=== PATIENT | male | born 1970 | race Caucasian/White ===

== ENCOUNTER 2017-11-02 09:10 | Emergency (ER) | payer MEDICAID, OTHER ==
[~2017-11-02] VITALS: Ht 180.3 cm; Wt 66.0 kg
[2017-11-02 09:15] VITALS: BP 144/92
[2017-11-02] MEDS ORDERED: IBUP-1984 PO (10:13)
[2017-11-02] MEDS ORDERED: ACET1TAB12 PO (10:13)
[2017-11-02] MEDS ORDERED: CLIN300C85 PO (10:13)
== END 2017-11-02 10:22 | disposition home or self-care (01) ==
LOC: ER 09:12
DX: K08.89 Other specified disorders of teeth and supporting structures (principal); F17.200 Nicotine dependence, unspecified, uncomplicated
CPT/HCPCS: 99283